=== PATIENT | male | born 1950 | race Caucasian/White ===

== ENCOUNTER → 2017-01-02 | Outpatient (CLI) | payer MEDICAID ==
[~2017-01-02] MED LIST: AMLO2.5T2 PO; AMLO5TAB2 PO; CEFD300C37 PO; CIPR250T27 PO; CIPR500T3 PO; DOCU-30 PO; LISI-167 PO; OXYC500S2 PO; PRAV40TA2 PO; SENN-1 PO; SENN1TAB7 PO; TAMS0.4C2 PO
== END | disposition home or self-care (01) ==
LOC: RAD 11:21
PROVIDERS: ATTEND Urology
DX: N20.0 Calculus of kidney (principal); N21.0 Calculus in bladder
CPT/HCPCS: 74000

== ENCOUNTER 2020-02-16 13:06 | Outpatient (CLI) | payer MEDICARE ==
[~2020-02-16 13:06] MED LIST changes: +AMLO-150 PO; -AMLO5TAB2 PO; +DOCU-131 PO; -DOCU-30 PO; -SENN-1 PO; +SENN-177 PO; +SENN-92 PO; -SENN1TAB7 PO
== END 2020-02-16 23:59 | disposition home or self-care (01) ==
LOC: RAD 13:06 → EDSTATUS 13:30 → RAD 23:59
PROVIDERS: ATTEND Nurse Practitioner
DX: K44.9 Diaphragmatic hernia without obstruction or gangrene (principal); N20.0 Calculus of kidney; N13.30 Unspecified hydronephrosis
CPT/HCPCS: 74176

== ENCOUNTER 2020-02-16 13:49 | Emergency (ER) | payer MEDICARE ==
[~2020-02-16] VITALS: Ht 182.9 cm; Wt 80.6 kg
[2020-02-16] MEDS ORDERED: SODIUM CHLORIDE 0.9% 1,000 ML IV ONE (14:28)
[2020-02-16] MEDS ORDERED: SODIUM CHLORIDE FLUSH 10ML SYR IVF ONE ×2 (14:30)
[2020-02-16] MEDS ORDERED: KETOROLAC 30 MG/1 ML IVPush ONE (14:30)
[2020-02-16] MEDS ORDERED: MORPHINE SULFATE 4 MG/ML, 1ML IVPush PRN (14:30)
[2020-02-16] MEDS ORDERED: ONDANSETRON 2MG/ML, 2ML IVPush ONE (14:30)
[2020-02-16] MEDS ORDERED: KETOROLAC 30 MG/1 ML ONE (14:46)
[2020-02-16] MEDS ORDERED: MORPHINE SULFATE 4 MG/ML, 1ML ONE (14:46)
[2020-02-16] MEDS ORDERED: ONDANSETRON 2MG/ML, 2ML ONE (14:46)
[2020-02-16 14:53] LABS: BASOPHILS # (AUTO) 0.03 x10^3/uL (0-0.1); BASOPHILS % (AUTO) 0 % (0-1); EOSINOPHILS # (AUTO) 0.04 x10^3/uL (0-0.4); EOSINOPHILS % (AUTO) 0 % (1-7); LYMPHOCYTES # (AUTO) 1.15 x10^3/uL (1-3.4); LYMPHOCYTES % (AUTO) 10 % (22-44); MD NO; MEAN CORPUSCULAR HEMOGLOBIN 30.6 pg (27.5-34.5); MEAN CORPUSCULAR HGB CONC 33.5 g/dL (33.2-36.2); MEAN CORPUSCULAR VOLUME 91.3 fL (81-97); MEAN PLATELET VOLUME 8.6 fL (7.4-10.4); MONOCYTES # (AUTO) 0.89 x10^3/uL (0.2-0.8); MONOCYTES % (AUTO) 7 % (2-9); NEUTROPHILS # (AUTO) 10.01 x10^3/uL (1.8-6.8); NEUTROPHILS % (AUTO) 83 % (42-75); PLATELET COUNT 186 x10^3/uL (130-400); RED BLOOD COUNT 5.28 x10^6/uL (4.38-5.82); RED CELL DISTRIBUTION WIDTH 13.9 % (9.4-14.8)
--- NOTE | 2020-02-16 14:58 | NUR ---
TASK RN: DR TAPIA AT BEDSIDE, PT ASSESSMENT & POC DISCUSSED ORDERS REC'D. PT OOB AND AMBULATED TO BATHROOM BUT WAS UNABLE TO PROVIDE URINE SAMPLE AT THIS TIME. PIV EST AND PT MED NOTED. IVF INFUSINGON DIAL-A-FLOW. CALL LIGHT W/I REACH.
[2020-02-16 15:02] LABS: ALANINE AMINOTRANSFERASE 25 U/L (12-78); ALBUMIN 3.6 g/dL (3.4-5.0); ANION GAP 9 mmol/L (5-15); CALCIUM 8.4 mg/dL (8.5-10.1); CHLORIDE 110 mmol/L (98-107)
[2020-02-16 15:05] LABS: ALKALINE PHOSPHATASE 68 U/L (45-117); BILIRUBIN,TOTAL 1.1 mg/dL (0.2-1.0); TOTAL PROTEIN 7.6 g/dL (6.4-8.2)
--- NOTE | 2020-02-16 15:32 | NUR ---
PT RESTING. STATES PAIN IS CONRTOLLED, WAITING FOR UA. IVF
--- NOTE | 2020-02-16 16:13 | NUR ---
PT AMBULATED TO [facility] STEADY GAIT
[2020-02-16 16:48] LABS: MICROSCOPIC NOT IND
[2020-02-16 17:55] VITALS: BP 156/82
--- NOTE | 2020-02-16 18:36 | NUR ---
Patient/Caregiver given discharge instructions and they have confirmed that they understand the instructions. Patient ambulatory with steady gait.
== END 2020-02-16 18:37 | disposition home or self-care (01) ==
LOC: ED 17:22
DX: N13.2 Hydronephrosis with renal and ureteral calculous obstruction (principal); R10.32 Left lower quadrant pain
CPT/HCPCS: 36415; 80053; 81003; 85025; 96374; 96375; 99284; J1885; J2270; J2405; J7030

== ENCOUNTER → 2020-02-23 | Outpatient (CLI) | payer MEDICARE | END | disposition home or self-care (01) | LOC: RAD 13:42 | PROVIDERS: ATTEND Anesthesiology | DX: N20.1 Calculus of ureter (principal) | CPT/HCPCS: 74018 ==